=== PATIENT | female | born 1955 | race Caucasian/White ===

== ENCOUNTER 2019-02-16 20:59 | Emergency (ER) | payer OTHER ==
[~2019-02-16] VITALS: Ht 162.6 cm; Wt 68.0 kg
[~2019-02-16 20:59] MED LIST: NORCO 5-325 TA1 EACH ORAL
[2019-02-16] MEDS ORDERED: HYDROcodone/Acetamin 5/325 tab PO ONE (21:15)
[2019-02-16] MEDS ORDERED: Neosporin Oint Ud Pkt TOP ONE (21:15)
--- NOTE | 2019-02-16 21:16 | NUR ---
ED Nurse Note: pt walked in c/o left wrist pain, pt states she was tryingto break a fight between her dog and other dog and fell on her wrist, noted deformity and swelling w/ tenderness on left wrist, cms intact, cap refill <3sec, will cont monitor.
[2019-02-16 21:17] VITALS: BP 159/84
--- NOTE | 2019-02-16 21:18 | Emergency Room Report ---
History of Present Illness General Chief Complaint: Multiple Trauma/Fall Source: Patient Present Illness HPI The patient was attacked by dog. She fell and hit her left hand. Scraped her right knee. The hand was more swollen than it is now. She placed ice and the swelling is gone down. The pain is severe at this time. She has some numbness of her ring and little finger but the swelling is over her thumb. She states that she had a fracture there when she was younger. She has some weakness and unable to fully close her fist without increasing pain. There are no cuts on the hand and she was not bitten. She also scraped her right knee. She says her tetanus is up-to-date that she got one last month when she broke her left foot and scraped her right knee. The pain is rated 10/10 and aching and sharp not radiating to the forearm. She was quite upset and this slightly anxious at this time. The patient has ulcers and cannot take Motrin. She has not taken any medication before coming in. No abdominal pain or melena. Allergies: Coded Allergies: No Known Allergies (Unverified , 11/30/18) Patient History Past Medical History: see triage record Social History: Denies: smoking Social History Narrative With her son Now: No Reviewed Nursing Documentation: PMH: Agreed; PSxH: Agreed Nursing Documentation-PMH Past Medical History: No Stated History Review of Systems Constitutional: Denies: fever Gastrointestinal: Reports: see HPI Musculoskeletal: Reports: see HPI Skin: Reports: see HPI Psychiatric: Reports: see HPI Neurological: Reports: see HPI Physical Exam Vital Signs Date Time Temp Pulse Resp B/P (MAP) Pulse Ox O2 Delivery O2 Flow Rate FiO2 02/16/19 21:02 98.6 91 20 159/84 (109) 95 Room Air Sp02 EP Interpretation: reviewed, normal General Appearance: well appearing, no apparent distress Head: normocephalic, atraumatic Eyes: bilateral eye normal inspection, bilateral eye PERRL, bilateral eye EOMI ENT: hearing grossly normal, normal voice, moist mucus membranes Neck: full range of motion, supple Respiratory: no respiratory distress, speaking full sentences Cardiovascular #1: regular rate, rhythm Cardiovascular #2: 2+ radial (R), 2+ radial (L) - Good capillary refill Gastrointestinal: normal inspection Musculoskeletal: swelling, other - Some deformity to left base of the thumb. Decreased range of motion. Tender to palpation without crepitance. The rest of the hand closes well without difficulty. There is no snuffbox tenderness. Neurologic: alert, oriented x3, motor strength/tone normal - Except left hand, sensory intact - Except tingling in ring and little finger, normal gait Psychiatric: mood/affect normal Skin: no rash, abrasions - Right knee, hematoma - Base of thumb Procedures Joint Reduction Joint Reduction : Consent: Verbal Joint Reduction Site: other - Left thumb Procedural Sedation: No - Bupivacaine 0.5% Reduction Attempts: One Pre-Procedure NV Exam: Yes Post-Procedure NV Exam: Yes - Regional anesthesia with numbness Post Joint Reduction Film: joint not reduced Patient Tolerated: Well Complications: None Progress After a bupivacaine radial and median nerve block base of the thumb was reduced. [place] like it was slipping. Postreduction films showed continued dislocation. Medical Decision Making Diagnostic Impression: Primary Impression: Hand contusion Qualified Codes: S60.222A - Contusion of left hand, initial encounter Additional Impressions: Thumb dislocation Qualified Codes: S63.105A - Unspecified dislocation of left thumb, initial encounter Abrasion ER Course Patient presents after being attacked by a dog. She injured her left wrist and scraped her right knee. Regarding the wrist differential includes fracture, contusion, hematoma amongst others. She is ambulatory and the knee just suffered an abrasion. X-rays are indicated. Also [place] is going to be given and bacitracin applied to the knee. X-ray with base of thumb dislocation. It appears with degenerative changes. See procedure note of attempted reduction. Repeat x-ray with continued dislocation. Is unclear whether this is new dislocation or chronic. Prior to placement of the splint the patient states that she has full range of motion of her hand and thumb as it is not painful at this time. Velcro thumb spica splint was applied by the tech. Distal vascular was intact however cinch regional block performed there was sensory deficit due to anesthesia. Discussed the need to follow-up with an orthopedic or hand specialist. She does have one as she recently fractured her foot. Reviewed x-rays with her and her son. Patient improved with no pain after regional anesthesia. Patient stable for outpatient observation and treatment. Other X-Ray Diagnostic Results Other X-Ray Diagnostic Results #1: X-Ray ordered: Left thumb # of Views/Limited Vs Complete: 3 View Indication: Other EP Interpretation: Yes Interpretation: no soft tissue swelling, no fractures, other - Base of thumb dislocated with degenerative changes Impression: Other Electronically Signed by: Electronically signed by Herson Pineda MD Other X-Ray Diagnostic Results #2: X-Ray ordered: Left thumb # of Views/Limited Vs Complete: 2 View Indication: Other EP Interpretation: Yes Interpretation: no soft tissue swelling, no fractures, other - Base of thumb continues to be dislocated Impression: Other Electronically Signed by: Electronically signed by Herson Pineda MD Last Vital Signs Date Time Temp Pulse Resp B/P (MAP) Pulse Ox O2 Delivery O2 Flow Rate FiO2 02/16/19 23:00 98.6 87 18 159/84 99 Room Air Although it is recorded pain 05/25, the patient had no pain due to the regional anesthesia. Status: improved Disposition: HOME, SELF-CARE Condition: Improved Scripts Bacitracin (Bacitracin) 28.4 Gm Oint...g. 1 APPLIC TOPIC BID, #20 GM Prov: Herson Pineda MD 02/16/19 Hydrocodone Bit/Acetaminophen 5-325* (NORCO 5-325*) 1 Each Tablet 1 TAB ORAL Q6H PRN for For Pain, #10 TAB 0 Refills Prov: Herson Pineda MD 02/16/19 Herson Pineda MD Feb 16, 2019 21:18
--- NOTE | 2019-02-16 22:50 | NUR ---
ED Nurse Note:] THUMB SPIKA APPLIED PER ERMD ORDER, PT TOLERATED WELL, CMS INTACT PRE AND POST.
[2019-02-16] MEDS ORDERED: NORCO 5-325 TA1 EACH ORAL (22:58)
[2019-02-16] MEDS ORDERED: BACITRACIN15 GM TOPIC (22:58)
[2019-02-16 23:00] VITALS: BP 159/84
--- NOTE | 2019-02-16 23:00 | NUR ---
D Nurse Note: pt cleared to be d/c per ERMD, pt dischage and aftercare instruction provided w/ prescription, pt education done via discussion and handout, pt advised to follow up with pcp or return to ed if changes in condition, pt verbalized understanding and agrees with plan, vss, ambulatory w/ steady gait, left w/ all belongings accompanied by son.
--- NOTE | 2019-02-17 13:49 | Diagnostic Imaging Report ---
Indication: left hand pain. Comparison: None Findings: 3 views of the left hand were obtained. Normal alignment is demonstrated. No acute fractures, erosions, or periosteal reaction are seen. Soft tissues are unremarkable. Moderate arthrosis at the base of the thumb noted with osteophyte formation and subchondral sclerosis. Impression: No acute findings.
--- NOTE | 2019-02-17 13:50 | Diagnostic Imaging Report ---
Indication: left hand pain. Comparison: None Findings: 3 views of the left hand were obtained. There is no fracture or malalignment. There is arthrosis at the base of the first metacarpal of the thumb. Bones are osteopenic. IMPRESSION: No acute injury identified
== END 2019-02-16 23:00 | disposition home or self-care (01) ==
LOC: EMR 21:26
DX: S60.222A Contusion of left hand, initial encounter (principal); S63.105A Unspecified dislocation of left thumb, initial encounter; S80.211A Abrasion, right knee, initial encounter; W19.XXXA Unspecified fall, initial encounter; Y92.9 Unspecified place or not applicable
CPT/HCPCS: 29130; 99283